=== PATIENT | male | born 1990 | race Caucasian/White ===

== ENCOUNTER 2017-04-27 06:23 | Day surgery (SDC) | payer OTHER ==
--- NOTE | 2017-04-17 21:31 | HP ---
PREOPERATIVE HISTORY AND PHYSICAL: DATE OF ADMISSION/SURGERY: 04/27/17 [facility] DATE OF OFFICE VISIT: 04/17/17 ATTENDING SURGEON: Marjorie Bradshaw MD * (DICTATED BY KENNEDY SLOAN) PROCEDURE: Right shoulder arthroscopic decompression, subpectoral biceps tenodesis and debridement. CHIEF COMPLAINT: Right shoulder pain. HISTORY OF PRESENT ILLNESS: Too is a 27-year-old male who presents to clinic for right shoulder pain from a work-related injury that occurred on 01/13 due to impingement and biceps tendonitis. He took conservative measures to include therapy, exercises, and anti-inflammatories and has therefore agreed to undergo a right shoulder arthroscopic decompression, subpectoral biceps tenodesis and debridement with Dr. Bradshaw on 04/27/17. PAST MEDICAL HISTORY: Asthma. PAST SURGICAL HISTORY: Denies past surgeries. MEDICATIONS: No active medications. ALLERGIES: No known drug allergies. FAMILY HISTORY: Positive for hypertension in his father. SOCIAL HISTORY: He lives with his girlfriend. 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 He denies tobacco or alcohol use. He is right-hand dominant. REVIEW OF SYSTEMS: Negative for fever, chills, or night sweats. No known anesthesia problems. HEENT: Negative for headache, lightheadedness, or syncopal episodes. Integumentary: Negative for abrasions, lesions, or open wounds. Cardiothoracic: Negative for chest pain, palpitations, or edema. Negative for hypertension. Pulmonary: Negative for shortness of breath with exertion, chronic cough, or COPD. GI: Negative for nausea, vomiting, diarrhea , constipation, or GERD. : Negative for nocturia, urinary frequency, history of UTIs, or kidney problems. Musculoskeletal: Positive for current complaint. Neuro: Negative for numbness, tingling, history of seizure, stroke , or epilepsy. Endocrine: Negative for diabetes or thyroid issues. Heme: Negative for easy bruising, history of bleeding disorder, history of DVT or PE. Infectious Disease: Negative for history of MRSA, hep C, or HIV. PHYSICAL EXAMINATION GENERAL: Well-developed, well-nourished, 27-year-old male, in no acute distress. Alert and oriented x3. Appropriate mood and affect. VITAL SIGNS: Height 74, weight 211, pulse 60, blood pressure 136/88, temperature 97.6, BMI 27.2. HEENT: Normocephalic, atraumatic. PERRLA. Throat: Clear. NECK: Supple. PULMONARY: Lungs are clear to auscultation bilaterally. No wheezing, rhonchi, or rales. CARDIO: Regular rate and rhythm. S1, S2. No murmurs, gallops, or rubs. No edema. ABDOMEN: Positive bowel sounds, soft, and nontender. NEURO: Alert and oriented x3. Cranial nerves grossly intact. Sensation is intact to light touch. MUSCULOSKELETAL: Right upper extremity, skin is intact. No warmth or erythema. Tenderness to palpation over the proximal biceps tendon. Nontender at the AC joint. Forward flexion to 155, abduction 140 with a lot of pain. External rotation to 50, internal rotation to T10. +5/5 strength with rotator cuff testing. Positive Kan's. Positive impingement, [place] as well as Buckhorn 's. Positive Speeds. +2 radial pulse. Sensation intact to light touch distally. DIAGNOSTIC STUDIES: MRI of the right shoulder revealed no full-thickness tear of the rotator cuff. There is a SLAP tear with fluid in the biceps groove. There is mild undersurface tearing of the rotator cuff. IMPRESSION: Right shoulder biceps tendinitis and impingement. PLAN: The patient is scheduled to undergo a right shoulder arthroscopic decompression, subpectoral biceps tenodesis, and debridement with Dr. Bradshaw on 04/27/17. He will return to the office in 10 to 14 days for postop followup and suture removal. Percocet will be used for postop pain management. The patient was given a script for physical therapy with the protocol to use after surgery. KENNEDY SLOAN [id number]/[facility] #: [id number] CHRISTOFER
[~2017-04-27 06:23] MED LIST: Buffered Lidocaine 0.9% SYRIN* 5 ML/SYR SYRINGE INTRADERM ONE; Dexamethasone IV* 4 MG/ML 1 ML (4 MG) IV SLOW PU ONE; Famotidine IV* 10 MG/ML 2 ML (20 mg) IV ONE
[2017-04-27] MEDS ORDERED: ceFAZolin 2 GM PREMIX (*) 50 ML IVPB ONE (06:39)
[2017-04-27] MEDS ORDERED: Dexamethasone IV* 4 MG/ML 1 ML (4 MG) ONE ×2 (06:40→06:42)
[2017-04-27] MEDS ORDERED: Famotidine IV* 10 MG/ML 2 ML (20 mg) ONE (06:40)
[2017-04-27] MEDS ORDERED: Propofol* 10 MG/ML 20 ML BTL IV PUSH ONE (07:04)
[2017-04-27] MEDS ORDERED: Lidocaine 2% PF * 5 ML VIAL ONE (07:04)
[2017-04-27] MEDS ORDERED: Midazolam* 1 MG/ML 2 ML VIAL (2 MG) ONE (07:05)
[2017-04-27] MEDS ORDERED: fentaNYL* 50 MCG/ML 2 ML VIAL (100 MCG VIAL) ONE ×3 (07:05→09:26)
[2017-04-27] MEDS ORDERED: ROPIVACAINE 5 MG/ML 30 ML BTL (0.5%) ONE (07:18)
[2017-04-27] MEDS ORDERED: Bupivacaine 0.25% SDV* 30 ML ONE ×2 (07:32→08:52)
[2017-04-27] MEDS ORDERED: Ketorolac INJ* 30 MG/ML 1 ML VIAL ONE (08:02)
[2017-04-27] MEDS ORDERED: fentaNYL* 50 MCG/ML 2 ML VIAL (100 MCG VIAL) IV PRN (08:26)
[2017-04-27] MEDS ORDERED: methylPREDNISolone ACETATE 80* 80 MG/ML 1 ML VIAL ONE (08:26)
[2017-04-27] MEDS ORDERED: PROCHLORPERAZINE INJ 5 MG/ML 2 ML VIAL IV PRN (08:26)
[2017-04-27] MEDS ORDERED: Morphine INJ* 2 MG/ML 1 ML SYRINGE IV PRN (08:26)
[2017-04-27] MEDS ORDERED: oxyCODONE/Acetamin 5/325 MG* TAB PO PRN (08:26)
[2017-04-27] MEDS ORDERED: Ondansetron INJ* 2 MG/ML VIAL ONE (08:35)
[2017-04-27] MEDS ORDERED: oxyCODONE/Acetamin 5/325 MG* TAB ONE (09:26)
[2017-04-27] MEDS ORDERED: PROCHLORPERAZINE INJ 5 MG/ML 2 ML VIAL ONE ×2 (10:12→10:14)
[2017-04-27 10:48] VITALS: BP 128/65
--- NOTE | 2017-04-27 22:42 | OP ---
CC: PCP.. DATE OF OPERATION: 04/27/17 - [facility] DATE OF : 88 SURGEON: Marjorie Bradshaw MD BUSINESS CONSULTANT: KENNEDY Hung. An field technical assistant was needed for the entirety of the case to help with positioning, retraction, and was utilized throughout all portions of the case. ANESTHESIOLOGIST: Dr. Hairston. ANESTHESIA: General. PRE-OP DIAGNOSIS: Right shoulder SLAP tear with impingement. POST-OP DIAGNOSIS: Right shoulder SLAP tear with impingement. OPERATIVE PROCEDURE: Right shoulder arthroscopy with: 1. Glenohumeral debridement. 2. Subacromial decompression with acromioplasty. 3. Subpectoral biceps tenodesis. 4. 80 mg of Depo-Medrol in subacromial space. COMPLICATIONS: None. ESTIMATED BLOOD LOSS: Minimal. IMPLANTS: One Ho and Nephew Q-Fix 2.8 mm. INDICATIONS: Too Valdez is a 27-year-old male who sustained a work- related injury to his right shoulder. He has a SLAP tear that is refracted to nonoperative treatment with impingement. He has failed conservative management including physical therapy and injections, he is unable to get back to work. After extensive discussion of the risks and benefits of surgery versus nonoperative treatment, he elected to proceed with operative treatment. Risks included but are not limited to bleeding, infection, damage to nerves, vessels, surrounding structures, wound nonhealing, persistent pain, need for further surgery, scarring, stiffness, persistent pain, incomplete relief of symptoms and risk of anesthesia as well as failure of the repair. DESCRIPTION OF PROCEDURE: The patient was greeted in the preoperative area by the attending surgeon. Correct extremity was marked and consent was confirmed. The patient was brought back to the operating suite where he was placed in supine position on the operating table, underwent general anesthesia and endotracheal intubation after which the patient was positioned in the left lateral decubitus position with an axillary roll. All bony prominences were padded. SCDs and a Elias Hugger was placed. The right shoulder was draped free with 10 pounds of traction. The right shoulder was prepped and draped in the usual sterile fashion, beginning with chlorhexidine soap scrub and alcohol wipe and final prep with ChloraPrep. After appropriate surgical pause indicating side, site, and procedure, administration of antibiotics, the incision in postero-lateral portal was made sharply with 11 blade. The scope was introduced into the joint and the joint was examined. The undersurface of the supraspinatus and subscapularis and infraspinatus were all intact. The glenoid had grade 0 changes. The humeral head had grade 0 changes. The anterior, posterior, and superior labrum had unstable fraying. The superior labrum was torn from the 10 o'clock to 2 o'clock position. There was subluxation of the biceps as well as erythema on the biceps. The anterior portal was made in an outside-in fashion. Shaver was used to debride the anterior, posterior and superior labrum. The biceps was then tenotomized using arthroscopic scissors. Shaver was used to debride it back. At this point, all fluid and debris was removed from the glenohumeral joint and the scope was repositioned in the subacromial space. Subacromial space was identified. There was moderate amount of inflammation and bursitis. The lateral portal was made in an outside-in fashion. Shaver was used to debride the bursa back. The rotator cuff was intact on the bursal side. The undersurface of the acromion was skeletonized using the electrocautery device. Then a very small spur was identified superolaterally. An acromioplasty was done using 4-0 oval cinthia. All excess bone and debris were removed. All fluid and debris was removed from the subacromial space and then the bed was air planed to the right side. The anterior aspect of the shoulder was prepped again using ChloraPrep and a 15 blade was used to make incision along the biceps encompassing the inferior two thirds of the pec. The soft tissues were carefully dissected with Metzenbaum scissors until the fascia was identified and the remainder of dissection was done bluntly. The pec was identified and retracted superiorly. Bicipital groove was palpated. A small mee was made in the fascia and the biceps was brought through the wound. There was abundant erythema and hyperemia as well as synovitis. The bicipital groove was then prepared in the usual fashion with electrocautery, the red ball rasp and the osteotome to allow for bony bleeding bed. The Q-Fix anchor was then used to drill unicortically into the bone in the groove and the sutures were then passed through the biceps 1 cm proximal to the musculotendinous junction in Vivek Erik type configuration. The excess biceps was then sharply excised and the biceps was shuttled back into the wound. The biceps was secured with a tight knot. The wound was copiously irrigated and portals were closed with 3-0 nylon and the biceps wound in layers with 2-0 Vicryl and 3-0 Monocryl. Sterile dressings were applied. The subacromial space and portals were all injected with 60 cc of 0.25% Marcaine plain and 80 mg of Depo-Medrol was used to inject the subacromial space. Sterile dressings were applied as well as UltraSling. He was awoken from anesthesia and transferred to PACU in stable condition. POSTOPERATIVE PLAN: He will be nonweightbearing. He will be on a sling for approximately 4 weeks. He will start physical therapy next week. He will be discharged on pain medication and antibiotics. DVT prophylaxis was considered but deferred due to no previous personal or family history. [id number]/[facility] #: [id number] CHRISTOFER
== END 2017-04-27 10:42 | disposition home or self-care (01) ==
LOC: OREAST 06:23
PROVIDERS: ATTEND Orthopaedic Surgery
DX: S43.431A Superior glenoid labrum lesion of right shoulder, initial encounter (principal); X58.XXXA Exposure to other specified factors, initial encounter; M25.811 Other specified joint disorders, right shoulder; J45.909 Unspecified asthma, uncomplicated; M75.21 Bicipital tendinitis, right shoulder
CPT/HCPCS: A9270-GY; C1776; J0690; J0780; J1040; J1100; J1885; J2250; J2405; J2704; J2795; J3010